=== PATIENT | female | born 1985 | race Hispanic/Latino ===

== ENCOUNTER 2022-08-06 11:06 | Emergency (ER) | payer SELFPAY ==
--- OUTSIDE RECORDS SUMMARY | 2022-08-06 11:09 | XMS REPORT | Continuity of Care Document ---
:[address] [facility] t Address [address] [place] [address] Care Team Providers Name Role Phone PCP, PATIENT DOES NOT HAVE A Primary Care Physician Unavaila ble JANETH DE LA GARZA Attending Clinician Unavailable Janeth De La Garza DO Attending Clinician Dionne Guerrero RN Attending Clinician Unavailable Jose Luis Morel Attending Clinician JOSE LUIS STEELE Attending Clinician Unavailable Doctor Unassigned, [place] Attending Clinician Unavailable Yahaira Bright MD Attending Clinician Wilfred Sainz Attending Clinician Kerline Cox Attending Clinician KERLINE MILLER Attending Clinician Unavailable JANETH DE LA GARZA Admitting Clinician Unavailable Payers Payer Name Policy Type Policy Number Effective Date Expiration Date S ource Problems Condition Condition Condition Status Onset Resolution Last Treating Co mments Source Name Details Category Date Date Treatment Clinician Date Chlamydia Chlamydia Disease Active 2017-12 Uni vers 0-26 ity of 00:00: [place] 00 [facility] Trichomona Trichomona Disease Active 2017-12 U nivers s s 0-26 ity of infection infection 00:00: [place] [facility] [place] Failure of Failure of Disease Active 2017-12 U [facility] outpatient outpatient 0-24 [place] PID (acute PID (acute Disease Active 2017-12 U nivers pelvic pelvic 0-23 ity of inflammato inflammato [place] Medical disease[place] disease) Branch Pyosalpinx Pyosalpinx Disease Active 2017-12 U nivers 0-23 ity of 00:00: [place] 00 Medical Branch Obesity Obesity Disease Active Univers (BMI (BMI 6-19 ity of 30-39.9) 30-39.9) 00:00: [place] 00 Medical Branch Tachycardi Tachycardi Disease Active U nivers a a 5-21 ity of 00:00: [place] 00 Medical Branch Allergies, Adverse Reactions, Alerts Allergy Allergy Status Severity Reaction(s) Onset Inactive Treating Comm ents Source Name Type Date Date Clinician HYDROCOD DRUG Active ITCHING Univers ONE-ACET 6-07 ity of AMINOPHE 00:00: [place] N 00 Medical Branch Hydrocod Propensi Active Itching Unive rs one-Acet ty to 6-07 ity of aminophe adverse 00:00: [place] n reaction 00 Medical s Branch Social History Social Habit Start Date Stop Date Quantity Comments Source History of Smokes tobacco University of tobacco use daily [facility] Exposure to 2022-06-15 2022-06-25 Not sure [facility] SARS-CoV-2 00:00:00 14:48:00 [facility] [place] [facility] (event) Branch Tobacco use and 2017-04-21 2017-04-21 Smokeless tobacco Un iversity of exposure 00:00:00 00:00:00 non-user [facility] Sex Assigned [birth year] [facility] 00:00:00 00:00:00 Smoking Status Start Date Stop Date Source Tobacco smoking consumption [facility] unknown Smokes tobacco daily 2017-04-21 00:00:00 Univers ity [facility] Medications Ordered Filled Start Stop Current Ordering Indication Dosage Frequency Signature Comments Components Source Medication Medication Date Date Medication? Clinician (SIG) Name Name methocarbam Yes [id number] 750mg Take 1 Univers oL 750 mg 7-25 tablet by ity o f tablet 00:00: mouth 4 [place] (four) Medical times [place] daily as needed (muscle spasm). methylPREDN Yes [id number] Take by Univers ISolone 7-25 105 mouth ity of (MEDROL, 00:00: SEE-INSTRU [place] as SIRIA,) 4 mg 00 CTIONS. Medica l tablets follow Branch package directions naproxen 0 Yes [id number] 550mg Take 1 Univers sodium 7-25 105 tablet by ity of (ANAPROX 00:00: mouth in [place] DS) 550 mg 00 the Medical tablet morning Branch and 1 tablet in the evening. Take with meals. ketorolac 2020- No 30mg 30 mg, Unive rs (TORADOL) 03-03 Intramuscu ity of injection 01:30: 00:24 lar, ONCE, [place] 30 mg 00 :00 1 dose, Medical Diana 03/02/21 Branch at 2030, ALEJANDRO
Fa culty member approving Restricted medication : Wilfred GLEZ cyclobenzap 0 Yes [id number] 10mg Take 1 Univers rine 10 mg 4-01 tablet by ity of tablet 00:00: mouth [place] (three) Medical times Branch daily. ibuprofen 0 Yes [id number] 600mg Take 1 Univers 600 mg 4-01 tablet by ity of tablet 00:00: mouth [place] [id number] every 6 Medical (six) Branch hours as needed for Pain (scale 4-6). cyclobenzap 2020-0 Yes [id number] 10mg Take 1 Univers rine 10 mg 4-01 tablet by ity of tablet 00:00: mouth [place] (three) Medical times Branch daily. ibuprofen 2020-0 Yes [id number] 600mg Take 1 Univers 600 mg 4-01 tablet by ity of tablet 00:00: mouth [place] [id number] every 6 Medical (six) Branch hours as needed for Pain (scale 4-6). cyclobenzap 2020-0 Yes [id number] 10mg Take 1 Univers rine 10 mg 4-01 tablet by ity of tablet 00:00: mouth 3 [place] (three) Medical times Branch daily. ibuprofen 2020-0 Yes [id number] 600mg Take 1 Univers 600 mg 4-01 tablet by ity of tablet 00:00: mouth [place] 00 every 6 Medical (six) Branch hours as needed for Pain (scale 4-6). cyclobenzap 2020-0 Yes [id number] 10mg Take 1 Univers rine 10 mg 4-01 tablet by ity of tablet 00:00: mouth 3 00 (three) Medical times Branch daily. ibuprofen 2021-0 Yes [id number] 600mg Take 1 Univers 600 mg 4-01 tablet by ity of tablet 00:00: mouth [place] 00 every 6 Medical (six) Branch hours as needed for Pain (scale 4-6). cyclobenzap 2021-0 Yes [id number] 10mg Take 1 Univers rine 10 mg 4-01 tablet by ity of tablet 00:00: mouth 3 00 (three) Medical times Branch daily. ibuprofen 2020-0 Yes [id number] 600mg Take 1 Univers 600 mg 4-01 tablet by ity of tablet 00:00: mouth [place] 00 every 6 Medical (six) Branch hours as needed for Pain (scale 4-6). cyclobenzap 2020-0 Yes [id number] 10mg Take 1 Univers rine 10 mg 4-01 tablet by ity of tablet 00:00: mouth 3 00 (three) Medical times Branch daily. ibuprofen 2020-0 Yes [id number] 600mg Take 1 Univers 600 mg 4-01 tablet by ity of tablet 00:00: mouth [place] 00 every 6 Medical (six) Branch hours as needed for Pain (scale 4-6). ketorolac 2019-0 2020- No 30mg 30 mg, Unive rs (TORADOL) 07-07 08-06 Slow IV ity of injection 17:30: 16:43 Push, [place] 30 mg 00 :00 ONCE, 1 Medical dose, [facility] Branch 07/07/20 at 1230, ALEJANDRO
Fa [facility] member approving Restricted medication : JOSE LUIS STEELE ketorolac 2020-0 Yes [id number] 10mg Take 1 U nivers 10 mg 8-06 tablet by ity of tablet 00:00: mouth [place] 00 every 6 Medical (six) Branch hours as needed for Pain (scale 7-10). methocarbam 2020-0 Yes [id number] 750mg Take 1 Univers ol 750 mg 8-06 tablet by ity o f tablet 00:00: mouth 4 00 (four) Medical times Branch daily as needed (muscle spasm). ketorolac 2020-0 Yes [id number] 10mg Take 1 U nivers 10 mg 8-06 tablet by ity of tablet 00:00: mouth [place] 00 every 6 Medical (six) Branch hours as needed for Pain (scale 7-10). methocarbam 2020-0 Yes [id number] 750mg Take 1 Univers ol 750 mg 8-06 tablet by ity o f tablet 00:00: mouth 4 00 (four) Medical times Branch daily as needed (muscle spasm). ketorolac 2020-0 Yes [id number] 10mg Take 1 U nivers 10 mg 8-06 tablet by ity of tablet 00:00: mouth [place] 00 every 6 Medical (six) Branch hours as needed for Pain (scale 7-10). methocarbam 2020-0 Yes [id number] 750mg Take 1 Univers ol 750 mg 8-06 tablet by ity o f tablet 00:00: mouth (four) Medical times Branch daily as needed (muscle spasm). ketorolac 2020-0 Yes [id number] 10mg Take 1 U nivers 10 mg 8-06 tablet by ity of tablet 00:00: mouth [place] 00 every 6 Medical (six) Branch hours as needed for Pain (scale 7-10). methocarbam 2020-0 Yes [id number] 750mg Take 1 Univers ol 750 mg 8-06 tablet by ity o f tablet 00:00: mouth (four) Medical times Branch daily as needed (muscle spasm). ketorolac 2020-0 Yes [id number] 10mg Take 1 U nivers 10 mg 8-06 tablet by ity of tablet 00:00: mouth [place] 00 every 6 Medical (six) Branch hours as needed for Pain (scale 7-10). methocarbam 2020-0 Yes [id number] 750mg Take 1 Univers ol 750 mg 8-06 tablet by ity o f tablet 00:00: mouth (four) Medical times Branch daily as needed (muscle spasm). ketorolac 2020-0 Yes [id number] 10mg Take 1 U nivers 10 mg 8-06 tablet by ity of tablet 00:00: mouth [place] 00 every 6 Medical (six) Branch hours as needed for Pain (scale 7-10). ketorolac 2020-0 Yes [id number] 10mg Take 1 U nivers 10 mg 8-06 tablet by ity of tablet 00:00: mouth [place] 00 every 6 Medical (six) Branch hours as needed for Pain (scale 7-10). methocarbam Yes [id number] 750mg Take 1 Univers ol 750 mg 8-06 tablet by ity o f tablet 00:00: mouth 4 [place] 00 (four) Medical times Branch daily as needed (muscle spasm). methocarbam No [id number] 750mg Take 1 Univers ol 750 mg 8-06 07-25 tablet by ity of tablet 00:00: 00:00 mouth 4 [place] 00 :00 (four) Medical times Branch daily as needed (muscle spasm). dexamethaso 2019- No 10mg 10 mg, Uni vers ne 06-19 Oral, ity of (DECADRON 03:00: 02:40 ONCE, 1 [place] PHOSPH[place] 00 :00 dose, Sat Medi morgan injection 06/18/20 at [facility] 10 mg 2200, Routine ketorolac 2019- No 30mg 30 mg, Unive rs (TORADOL) 06-19 Intramuscu ity of injection 03:00: 03:00 lar, ONCE, [place] 30 mg 00 :00 1 dose, Medical Sat Branch 06/18/20 at 2200, ALEJANDRO
Fa culty member approving Restricted medication : KERLINE MILLER maalox:diph 2019- No 15mL 15 mL, Uni vers enhydrAMINE 06-19 Oral, ity of :lidocaine 02:00: 02:40 ONCE, 1 [place] as 2 % viscous 00 :00 dose, Sat Med ical 1:1:1 06/18/20 [place] ([facility]-MOUT 2100, ALEJANDRO [facility]) oral suspension 15 mL acetaminoph 2019- No 1000mg 1,000 mg, Univers en 06-19 Oral, ity of (TYLENOL) 01:30: 00:40 ONCE, [place] tablet 00 :00 dose, Sat Medical 1,000 mg 06/18/20 at [facility] h 2030, Routine gabapentin Yes [id number] 300mg Take 1 Univers 300 mg 7-07 capsule by ity of capsule 00:00: mouth 3 [place] 00 (three) Medical times Branch daily as needed for Pain (scale 7-10). gabapentin Yes [id number] 300mg Take 1 Univers 300 mg 7-07 capsule by ity of capsule 00:00: mouth 3 [place] (three) Medical times Branch daily as needed for Pain (scale 7-10). gabapentin 2019-0 Yes [id number] 300mg Take 1 Univers 300 mg 7-07 capsule by ity of capsule 00:00: mouth 3 (three) Medical times Branch daily as needed for Pain (scale 7-10). gabapentin 2019-0 Yes [id number] 300mg Take 1 Univers 300 mg 7-07 capsule by ity of capsule 00:00: mouth 3 (three) Medical times Branch daily as needed for Pain (scale 7-10). gabapentin 2019-0 Yes [id number] 300mg Take 1 Univers 300 mg 7-07 capsule by ity of capsule 00:00: mouth 3 (three) Medical times Branch daily as needed for Pain (scale 7-10). gabapentin 2019-0 Yes [id number] 300mg Take 1 Univers 300 mg 7-07 capsule by ity of capsule 00:00: mouth 3 (three) Medical times Branch daily as needed for Pain (scale 7-10). gabapentin 2019-0 Yes [id number] 300mg Take 1 Univers 300 mg 7-07 capsule by ity of capsule 00:00: mouth (three) Medical times Branch daily as needed for Pain (scale 7-10). gabapentin 2019-0 Yes [id number] 300mg Take 1 Univers 300 mg 7-07 capsule by ity of capsule 00:00: mouth 3 (three) Medical times Branch daily as needed for Pain (scale 7-10). gabapentin 2019-0 Yes [id number] 300mg Take 1 Univers 300 mg 7-07 capsule by ity of capsule 00:00: mouth (three) Medical times Branch daily as needed for Pain (scale 7-10). gabapentin 2019-0 Yes [id number] 300mg Take 1 Univers 300 mg 7-07 capsule by ity of capsule 00:00: mouth 3 (three) Medical times Branch daily as needed for Pain (scale 7-10). cyclobenzap 2019-0 Yes [id number] 10mg Take 1 Univers rine 10 mg 7-04 tablet by ity of tablet 00:00: mouth 3 (three) Medical times Branch daily as needed for Muscle Spasms. acetaminoph 2019-0 Yes [id number] 1{tbl} Take 1 Univers en-codeine 7-04 tablet by ity of (TYLENOL-CO 00:00: mouth [place] DEINE #3) 00 every 4 Medical 300-30 mg (four) Branch tablet hours as needed for Pain (scale 1-3). cyclobenzap 2019 Yes [id number] 10mg Take 1 Univers rine 10 mg 7-04 tablet by ity of tablet 00:00: mouth 3 [place] 00 (three) Medical times Branch daily as needed for Muscle Spasms. acetaminoph Yes [id number] 1{tbl} Take 1 Univers en-codeine 7-04 tablet by ity of (TYLENOL-CO 00:00: mouth [place] DEINE #3) 00 every 4 Medical 300-30 mg (four) Branch tablet hours as needed for Pain (scale 1-3). cyclobenzap Yes [id number] 10mg Take 1 Univers rine 10 mg 7-04 tablet by ity of tablet 00:00: mouth 3 [place] 00 (three) Medical times Branch daily as needed for Muscle Spasms. acetaminoph Yes [id number] 1{tbl} Take 1 Univers en-codeine 7-04 tablet by ity of (TYLENOL-CO 00:00: mouth [place] DEINE #3) 00 every 4 Medical 300-30 mg (four) Branch tablet hours as needed for Pain (scale 1-3). cyclobenzap Yes [id number] 10mg Take 1 Univers rine 10 mg 7-04 tablet by ity of tablet 00:00: mouth 3 [place] 00 (three) Medical times Branch daily as needed for Muscle Spasms. acetaminoph Yes [id number] 1{tbl} Take 1 Univers en-codeine 7-04 tablet by ity of (TYLENOL-CO 00:00: mouth [place] DEINE #3) 00 every 4 Medical 300-30 mg (four) Branch tablet hours as needed for Pain (scale 1-3). cyclobenzap 2019 Yes [id number] 10mg Take 1 Univers rine 10 mg 7-04 tablet by ity of tablet 00:00: mouth 3 [place] 00 (three) Medical times Branch daily as needed for Muscle Spasms. acetaminoph 0 Yes [id number] 1{tbl} Take 1 Univers en-codeine 7-04 tablet by ity of (TYLENOL-CO 00:00: mouth [place] DEINE #3) 00 every 4 Medical 300-30 mg (four) Branch tablet hours as needed for Pain (scale 1-3). cyclobenzap Yes [id number] 10mg Take 1 Univers rine 10 mg 7-04 tablet by ity of tablet 00:00: mouth 3 [place] 00 (three) Medical times Branch daily as needed for Muscle Spasms. acetaminoph Yes [id number] 1{tbl} Take 1 Univers en-codeine 7-04 tablet by ity of (TYLENOL-CO 00:00: mouth [place] DEINE #3) 00 every 4 Medical 300-30 mg (four) Branch tablet hours as needed for Pain (scale 1-3). cyclobenzap Yes [id number] 10mg Take 1 Univers rine 10 mg 7-04 tablet by ity of tablet 00:00: mouth 3 [place] 00 (three) Medical times Branch daily as needed for Muscle Spasms. acetaminoph Yes [id number] 1{tbl} Take 1 Univers en-codeine 7-04 tablet by ity of (TYLENOL-CO 00:00: mouth [place] DEINE #3) 00 every 4 Medical 300-30 mg (four) Branch tablet hours as needed for Pain (scale 1-3). cyclobenzap Yes [id number] 10mg Take 1 Univers rine 10 mg 7-04 tablet by ity of tablet 00:00: mouth 3 [place] 00 (three) Medical times Branch daily as needed for Muscle Spasms. acetaminoph Yes [id number] 1{tbl} Take 1 Univers en-codeine 7-04 tablet by ity of (TYLENOL-CO 00:00: mouth [place] DEINE #3) 00 every 4 Medical 300-30 mg (four) Branch tablet hours as needed for Pain (scale 1-3). cyclobenzap Yes [id number] 10mg Take 1 Univers rine 10 mg 7-04 tablet by ity of tablet 00:00: mouth 3 [place] 00 (three) Medical times Branch daily as needed for Muscle Spasms. acetaminoph Yes [id number] 1{tbl} Take 1 Univers en-codeine 7-04 tablet by ity of (TYLENOL-CO 00:00: mouth [place] DEINE #3) 00 every 4 Medical 300-30 mg (four) Branch tablet hours as needed for Pain (scale 1-3). cyclobenzap 0 Yes [id number] 10mg Take 1 Univers rine 10 mg 7-04 tablet by ity of tablet 00:00: mouth 3 [place] 00 (three) Medical times Branch daily as needed for Muscle Spasms. acetaminoph 0 Yes [id number] 1{tbl} Take 1 Univers en-codeine 7-04 tablet by ity of (TYLENOL-CO 00:00: mouth [place] DEINE #3) 00 every 4 Medical 300-30 mg (four) Branch tablet hours as needed for Pain (scale 1-3). naproxen 2017-12 Yes 550mg Take 1 Univer s sodium 2-12 tablet by ity of (ANAPROX 00:00: mouth 2 [place] DS) 550 mg 00 (two) Medical tablet times Branch daily with meals. methylPREDN 2017-12 Yes Take by Uni vers ISolone 2-12 mouth ity of (MEDROL, 00:00: SEE-INSTRU [place] as SIRIA,) 4 mg 00 CTIONS. Medica l tablets follow Branch package directions naproxen 2017-12 Yes 550mg Take 1 Univer s sodium 2-12 tablet by ity of (ANAPROX 00:00: mouth 2 [place] DS) 550 mg 00 (two) Medical tablet times Branch daily with meals. methylPREDN 2017-12 Yes Take by Uni vers ISolone 2-12 mouth ity of (MEDROL, 00:00: SEE-INSTRU [place] as SIRIA,) 4 mg 00 CTIONS. Medica l tablets follow Branch package directions naproxen 2017-12 Yes 550mg Take 1 Univer s sodium 2-12 tablet by ity of (ANAPROX 00:00: mouth 2 [place] DS) 550 mg 00 (two) Medical tablet times Branch daily with meals. methylPREDN 2017-12 Yes Take by Uni vers ISolone 2-12 mouth ity of (MEDROL, 00:00: SEE-INSTRU [place] as SIRIA,) 4 mg 00 CTIONS. Medica l tablets follow Branch package directions naproxen 2017-12 Yes 550mg Take 1 Univer s sodium 2-12 tablet by ity of (ANAPROX 00:00: mouth 2 [place] DS) 550 mg 00 (two) Medical tablet times Branch daily with meals. methylPREDN 2017-12 Yes Take by Uni vers ISolone 2-12 mouth ity of (MEDROL, 00:00: SEE-INSTRU [place] as SIRIA,) 4 mg 00 CTIONS. Medica l tablets follow Branch package directions naproxen 2017-12 Yes 550mg Take 1 Univer s sodium 2-12 tablet by ity of (ANAPROX 00:00: mouth 2 [place] DS) 550 mg 00 (two) Medical tablet times Branch daily with meals. methylPREDN 2017-12 Yes Take by Uni vers ISolone 2-12 mouth ity of (MEDROL, 00:00: SEE-INSTRU [place] as SIRIA,) 4 mg 00 CTIONS. Medica l tablets follow Branch package directions naproxen 2017-12 Yes 550mg Take 1 Univer s sodium 2-12 tablet by ity of (ANAPROX 00:00: mouth 2 [place] DS) 550 mg 00 (two) Medical tablet times Branch daily with meals. methylPREDN 2017-12 Yes Take by Uni vers ISolone 2-12 mouth ity of (MEDROL, 00:00: SEE-INSTRU [place] as SIRIA,) 4 mg 00 CTIONS. Medica l tablets follow Branch package directions naproxen 2017-12 Yes 550mg Take 1 Univer s sodium 2-12 tablet by ity of (ANAPROX 00:00: mouth 2 [place] DS) 550 mg 00 (two) Medical tablet times Branch daily with meals. methylPREDN 2017-12 Yes Take by Uni vers ISolone 2-12 mouth ity of (MEDROL, 00:00: SEE-INSTRU [place] as SIRIA,) 4 mg 00 CTIONS. Medica l tablets follow Branch package directions naproxen 2017-12 Yes 550mg Take 1 Univer s sodium 2-12 tablet by ity of (ANAPROX 00:00: mouth 2 [place] DS) 550 mg 00 (two) Medical tablet times Branch daily with meals. methylPREDN 2017-12 Yes Take by Uni vers ISolone 2-12 mouth ity of (MEDROL, 00:00: SEE-INSTRU [place] as SIRIA,) 4 mg 00 CTIONS. Medica l tablets follow Branch package directions naproxen 2017-12 Yes 550mg Take 1 Univer s sodium 2-12 tablet by ity of (ANAPROX 00:00: mouth 2 [place] DS) 550 mg 00 (two) Medical tablet times Branch daily with meals. methylPREDN 2017-12 Yes Take by Uni vers ISolone 2- mouth ity of (MEDROL, 00:00: SEE-INSTRU [place] as SIRIA,) 4 mg 00 CTIONS. Medica l tablets follow Branch package directions naproxen 2017-12- No 550mg Take 1 Unive rs sodium 01-13 tablet by ity of (ANAPROX 00:00: 00:00 mouth 2 [place] DS) 550 mg 00 :00 (two) Medical tablet times Branch daily with meals. methylPREDN 2017-12 No Take by Un cathy ISolone 01-13- mouth ity of (MEDROL, 00:00: 00:00 [place]INSTRU [place] SIRIA,) 4 mg 00 :00 CTIONS. Medica l tablets follow Branch package directions Immunizations Ordered Filled Immunization Date Status Comments [facility] e Immunization Name Name Influenza Virus 2018-09-23 Completed Universit y of Vaccine [place] .5 mL 00:00:00 [place] [facility] 6+ MO Branch Influenza Virus 2018-09-23 Completed Universit y of Vaccine [place] .5 mL 00:00:00 [place] [facility] IM 6+ MO Branch Influenza Virus 2018-09-23 Completed Universit y of Vaccine [place] .5 mL 00:00:00 [facility] [place] [facility] 6+ MO Branch Influenza Virus 2018-09-23 Completed Universit y of Vaccine [place] .5 mL 00:00:00 [facility] [place] [facility] 6+ MO Branch Influenza Virus 2018-09-23 Completed Universit y of Vaccine [place] .5 mL 00:00:00 [place] [facility] IM 6+ MO Branch Influenza Virus 2018-09-23 Completed Universit y of Vaccine [place] .5 mL 00:00:00 [place] [facility] IM 6+ MO Branch Influenza Virus 2018-09-23 Completed Universit y of Vaccine [place] .5 mL 00:00:00 [place] [facility] IM 6+ MO Branch Influenza Virus 2018-09-23 Completed Universit y of Vaccine [place] .5 mL 00:00:00 [place] [facility] IM 6+ MO Branch Influenza Virus 2018-09-23 Completed Universit y of Vaccine [place] .5 mL 00:00:00 [place] [facility] IM 6+ MO Branch Influenza Virus 2018-09-23 Completed Universit y of Vaccine [place] .5 mL 00:00:00 [facility] [place] [facility] 6+ MO Branch Vital Signs Vital Name Observation Time Observation Value Comments Source Systolic blood 2022-06-25 21:16:58 122 mm[Hg] Univer sity of pressure [place] [facility] Diastolic blood 2022-06-25 21:16:58 66 mm[Hg] Unive rsity of pressure [place] [facility] Heart rate 2022-06-25 21:16:58 90 /min Universi ty of [place] [facility] Body temperature 2022-06-25 21:16:58 37.22 Rin Univ ersity of [place] [facility] Respiratory rate 2022-06-25 21:16:58 15 /min Univ ersity of [place] [facility] Body height 2022-06-25 19:49:00 154.9 cm Universi ty of [place] [facility] Body weight 2022-06-25 19:49:00 68.04 kg Universi ty [facility] [place] [facility] BMI 2022-06-25 19:49:00 28.34 kg/m2 Universi ty of [place] [facility] Oxygen saturation in 2022-06-25 19:49:00 100 /min University of Arterial blood by [place] [facility] morgan Pulse oximetry Branch Systolic blood 2021-07-24 15:12:00 110 mm[Hg] Univer sity of pressure [place] [facility] Diastolic blood 2021-07-24 15:12:00 77 mm[Hg] Unive rsity of pressure [place] [facility] Heart rate 2021-07-24 15:12:00 80 /min Universi ty of [place] [facility] Body temperature 2021-07-24 15:12:00 37.11 Rin Univ ersity of [place] [facility] Respiratory rate 2021-07-24 15:12:00 18 /min Univ ersity of [place] [facility] Body height 2021-07-24 15:12:00 154.9 cm Universi ty of [place] [facility] Body weight 2021-07-24 15:12:00 72.576 kg Universi ty of [place] [facility] BMI 2021-07-24 15:12:00 30.23 kg/m2 Universi ty of [place] [facility] Oxygen saturation in 2021-07-24 15:12:00 100 /min University of Arterial blood by [place] [facility] morgan Pulse oximetry Branch Systolic blood 2021-03-02 23:15:00 131 mm[Hg] Univer sity of pressure [place] [facility] Diastolic blood 2021-03-02 23:15:00 89 mm[Hg] Unive rsity of pressure [place] [facility] Heart rate 2021-03-02 23:15:00 98 /min Universi ty of [place] [facility] Body temperature 2021-03-02 23:15:00 36.89 Rin Univ ersity of [place] [facility] Respiratory rate 2021-03-02 23:15:00 18 /min Univ ersity of [place] [facility] Body weight 2021-03-02 23:15:00 72.576 kg Universi ty of [place] [facility] BMI 2021-03-02 23:15:00 30.23 kg/m2 Universi ty of [place] [facility] Oxygen saturation in 2021-03-02 23:15:00 97 /min University of Arterial blood by [facility] Pulse oximetry Branch Systolic blood 2020-07-07 18:00:00 115 mm[Hg] Univer sity of pressure [place] [facility] Diastolic blood 2020-07-07 18:00:00 84 mm[Hg] Unive rsity of pressure [place] [facility] Heart rate 2020-07-07 18:00:00 77 /min Universi ty of [place] [facility] Respiratory rate 2020-07-07 18:00:00 18 /min Univ ersity of [place] [facility] Oxygen saturation in 2020-07-07 18:00:00 99 /min University of Arterial blood by [facility] Pulse oximetry Branch Body temperature 2020-07-07 16:00:00 36.78 Rin Univ ersity of [place] [facility] Body weight 2020-07-07 16:00:00 72.576 kg Universi ty of [place] [facility] BMI 2020-07-07 16:00:00 30.23 kg/m2 Universi ty [facility] [place] [facility] Systolic blood 2020-06-19 02:50:00 131 mm[Hg] Univer sity of pressure [place] [facility] Diastolic blood 2020-06-19 02:50:00 96 mm[Hg] Unive rsity of pressure [place] [facility] Heart rate 2020-06-19 02:50:00 82 /min Universi ty [facility] [place] [facility] Body temperature 2020-06-19 02:50:00 37.06 Rin Univ ersity [facility] [place] [facility] Respiratory rate 2020-06-19 02:50:00 19 /min Univ ersity of [place] [facility] Oxygen saturation in 2020-06-19 02:50:00 99 /min University of Arterial blood by [facility] Pulse oximetry Branch Body height 2020-06-18 23:38:00 [facility]9 [facility] Body [facility] 2020-06-18 23:38:00 [facility].844 [facility] BMI 2020-06-18 23:38:00 31.18 kg/m2 [facility] Procedures Procedure Date / Time Performed Performing Clinician Sourc e XR ANKLE <3 VW LEFT 2022-06-25 20:22:00 Janeth De [facility] Gar[facility] CONSENT/REFUSAL FOR 2022-06-25 19:24:21 Doctor Unassigned, No [facility] [place] [facility] TREATMENT NOTICE OF PRIVACY 2021-07-24 15:05:13 Doctor Unassigned, No Univ [facility] CONSENT/REFUSAL FOR 2021-07-24 15:04:56 Doctor Unassigned, No [facility] [place] [facility] AND Name Medical Branch TREATMENT CONSENT/REFUSAL FOR 2021-03-02 23:08:33 Doctor Unassigned, No [facility] [place] DI[facility] AND Name Medical Branch TREATMENT URINALYSIS 2020-07-07 16:42:00 Cedric [facility] POCT TEST 2020-07-07 16:42:00 Jose Luis Steele [facility] BASIC METABOLIC PANEL 2020-07-07 16:26:00 Jose Luis Steele [facility] (NA, K, CL, CO2, Medical Branch GLUCOSE, BUN, CREATININE, CA) CBC WITH DIFF 2020-07-07 16:26:00 Jose Luis Steele [facility] NOTICE OF PRIVACY 2020-07-07 15:55:50 Doctor Unassigned, No Univ [facility] CONSENT/REFUSAL FOR 2020-07-07 15:55:33 Doctor Unassigned, No [facility] [place] [facility] AND Name Medical Branch TREATMENT XR CHEST 1 VW COVID 2020-06-19 01:49:09 Kerline Miller [facility] POCT TEST 2020-06-19 01:36:00 Kerline Miller [facility] RAPID STREP SCREEN FOR 2020-06-19 00:37:00 [facility] NOTICE OF PRIVACY 2020-06-18 23:31:56 [facility] CONSENT/REFUSAL FOR 2020-06-18 23:31:43 Doctor [facility], No [facility] Name Medical Branch TREATMENT Encounters Start End Encounter Admission Attending Care Care Encounter Source Date/Time Date/Time Type Type Clinicians Facility Department ID 2022-06-25 2022-06-25 Emergency X SINGER [facility] ERT [id number] Univers 14:50:00 16:19:00 JANETH giraldo [facility] 2022-06-25 2022-06-25 Emergency [facility] [id number] Univers 14:50:00 16:19:00 Janeth OCNONOR [id number] i ty of [place] 4.2.7.2.686 [facility] [id number] [address] 2021-07-25 2021-07-25 Letter Dionne Guerrero [id number] Univers 00:00:00 00:00:00 (Out) NEHAL [id number] it y of HOSPITAL [id number] Reuben as [phone] [place] [address] Branch 2021-07-24 2021-07-24 [facility] [id number] Univers 10:14:00 10:49:00 Jose Luis Oconnor [id number] i ty of [place] 4.2.7.2.686 [facility] [phone] [place] [address] Branch 2021-07-24 2021-07-24 Emergency X CEDRIC, [facility] ERT [id number] Univers 10:14:00 10:49:00 JOSE LUIS giraldo [facility] 2021-07-24 2021-07-24 Orders Doctor GUTIERREZ 1.2.840.114 [id number] Univers 00:00:00 00:00:00 Only Unassigned, NEHAL [id number] ity of [place] [facility] 4.2.7.2.686 Reuben as [id number] [facility] [address] 2021-07-24 2021-07-24 Estefania Bright [facility] [id number] Univers 00:00:00 00:00:00 [facility] [id number] it y of Surgical 4.2.7.2.686 Reuben as Specialti [id number] Wy dical es [address] [facility] 2021-03-02 2021-03-02 Emergency Robin, K [facility] 1.2.840.114 [id number] Univers 18:18:00 19:42:00 Trudy Bayside 350.1.13.10 i ty of [place] 4.2.7.2.686 [facility] [id number] [address] 2021-03-02 2021-03-02 Emergency X [facility] ERT [id number] Univers 18:08:00 18:08:00 ity of [facility] 2020-07-07 2020-07-07 [facility] 1.2.840.114 [id number] Univers 11:04:00 13:54:00 Jose Luis [place] 350.1.13.10 i ty of [place] 4.2.7.2.686 [facility] [id number] [address] 2020-07-07 2020-07-07 Emergency X [facility] ERT [id number] Univers 10:56:00 10:56:00 ity of [facility] 2020-07-07 2020-07-07 Orders Doctor GUTIERREZ 1.2.840.114 [id number] Univers 00:00:00 00:00:00 Only Unassigned, NEHAL [id number] ity of [place] [facility] 4.2.7.2.686 Reuben as [id number] [address] 2020-06-18 2020-06-18 [facility] 1.2.840.114 [id number] Univers 18:56:19 22:26:00 Kerline Oconnor 350.1.13.10 ity of [place] 4.2.7.2.686 [facility] [id number] [address] 2020-06-18 2020-06-18 Emergency X KING [facility] ERT [id number] Univers 18:56:19 18:56:19 KERLINE ity of [facility] 2020-06-18 2020-06-18 Orders Doctor BRENDA 1.2.840.114 [id number] Univers 00:00:00 00:00:00 Only Unassigned, NEHAL 350.1.13.10 ity of [place] [facility] 4.2.7.2.686 Reuben as [phone] [address] Results Test Description Test Time Test Comments Results Result Comments Source Urinalysis 2020-07-07 16:56:00 Test Item Value Reference Range Interpretation Comme nts APPEARANCE (test code = Clear Clear 0173984882) COLOR (test code = 1424057888) Yellow Yellow PH (test code = 0807232785) 4.8-8.0 SP GRAVITY (test code = 1.003-1.030 8548101272) GLU U QUAL (test code = Normal Normal 6557948867) BLOOD (test code = 5258931830) 1+ Negative A KETONES (test code = 4157724162) Negative Negative PROTEIN (test code = 2887-8) Negative Negative UROBILIN (test code = Normal Normal 1696304635) BILIRUBIN (test code = Negative Negative 0161655586) NITRITE (test code = 8288205617) Negative Negative LEUK NOVA (test code = Negative Negative 3924456208) RBC/HPF (test code = 4193276273) See_Comment [Automated message] The system which ge nerated this result transmit nico reference range: 0 - 3 HP F. The reference range was not used to interpret th is result as normal/abnormal . WBC/HPF (test code = 5891893205) See_Comment [Automated message] The system which ge nerated this result transmit nico reference range: 0 - 5 HP F. The reference range was not used to interpret th is result as normal/abnormal . BACTERIA (test code = Negative Negative 0866529103) MUCOUS (test code = 5906258689) Moderate Negative LPF A SQ EPITH (test code = HPF 5797006209) Lab Interpretation (test code = Abnormal 09628-6) [facility] (NA, K, CL, CO2, GLUCOSE, BUN, CREATININE, CA)2020-07-07 16:46:00 Test Item Value Reference Range Interpretation Comments NA (test code = 135 mmol/L 135-145 3950813370) K (test code = 4.0 mmol/L 3.5-5 7491950438) CL (test code = 104 mmol/L 98-108 2260079823) CO2 TOTAL (test code = 24 mmol/L 23-31 3627592480) AGAP (test code = 2-16 2743965321) BUN (test code = 9 mg/dL 7-23 6260327564) GLUCOSE (test code = 107 mg/dL 70-110 2643081136) CREATININE (test code 0.53 mg/dL 0.5-1.04 = 1802013105) CALCIUM (test code = 9.0 mg/dL 8.6-10.6 1596197235) eGFR Calculation mL/min/1.73m2 (Non-) (test code = 7232598739) eGFR Calculation mL/min/1.73m2 () (test code = 0189917478) ROSELINE (test code = ROSELINE) Association of Glomerular Filtration Rate (GFR) and Staging of Kidney Disease* + -+ + ---+| GFR (mL/min/1.73 m2) ?| With Kidney Damage ?| ?Without Kidney Damage+ -------+ ------+ ---------+| ?>90 ?| ?Stage one ?| ? Normal ?+ --+ -+ ----+| ?60-89 ?| ?Stage two ?| ? Decreased GFR ? + -+ + ---+| ?30-59 ?| ?Stage three ?| ? Stage three ? + -+ + ---+| ?15-29 ?| ?Stage four ? | ? Stage four ?+ --+ -+ ----+| ?<15 (or dialysis) ? ?| ?Stage five ? | ? Stage five ?+ --+ -+ ----+ *Each stage assumes the associated GFR level has been in effect for at least three months. ?Stages 1 to 5, with or without kidney disease, indicate chronic kidney disease. Notes: Determination of stages one and two (with eGFR >59mL/min/1.73 m2) requires estimation of kidney damage for at least three months as defined by structural or functional abnormalities of the kidney, manifested by either:Pathological abnormalities or Markers of kidney damage (including abnormalities in the composition of the blood or urine or abnormalities in imaging tests). [facility] [id number] 16:42:00 Test Item Value Reference Range Interpretation Comments POCT PREG (test code = 1605) negative On board controls acceptable with present C Line (test code = 3574) POCT PREG LOT # (test code = 3575) [id number] POCT PREG TEST DATE (test code = 3576) Lab Interpretation (test code = Normal 39515-9) [facility] with [id number] 16:37:00 Test Item Value Reference Range Interpretation Comments WBC (test code = See_Comment [Automated 6590-2) message] The sy stem which generated this result transmitted reference range : 4.30 - 11.10 10*3/?L. The reference range was not used to interpret this result as normal/abnormal . RBC (test code = See_Comment [Automated 369-8) message] The sy stem which generated this result transmitted reference range : 3.93 - 5.25 10*6/?L. The reference range was not used to interpret this result as normal/abnormal . HGB (test code = 13.2 g/dL 11.6-15 718-7) HCT (test code = 39.9 % 35.7-45.2 4544-3) MCV (test code = 85.6 fL 80.6-95.5 787-2) MCH (test code = 28.3 pg 25.9-32.8 785-6) MCHC (test code = 33.1 g/dL 31.6-35.1 786-4) RDW-SD (test code = 39.0 fL 39-49.9 51493-8) RDW-CV (test code = 12.6 % 12-15.5 788-0) PLT (test code = See_Comment [Automated 917-3) message] The sy stem which generated this result transmitted reference range : 166 - 358 10*3/ ?L. The reference r gabo was not used to interpret this result as normal/abnormal . MPV (test code = 11.9 fL 9.5-12.9 61585-6) NRBC/100 WBC (test See_Comment [Automat ed code = 7795055975) message] The system which generated this result transmitted reference range : 0.0 - 10.0 /100 WBCs. The refer ence range was not u sed to interpret th is result as normal/abnormal . NRBC x10^3 (test code <0.01 See_Comment [Auto mated = 7770754951) message] The s ystem which generated this result transmitted reference range : 10*3/?L. The reference range was not used to interpret this result as normal/abnormal . GRAN MAT (NEUT) % 68.7 % (test code = 770-8) IMM GRAN % (test code 0.60 % = 0025364764) LYMPH % (test code = 19.2 % 736-9) MONO % (test code = 9.9 % 5905-5) EOS % (test code = 1.0 % 713-8) BASO % (test code = 0.6 % 706-2) GRAN MAT x10^3(ANC) 7.39 10*3/uL 1.88-7.09 H (test code = 8458389933) IMM GRAN x10^3 (test 0.06 10*3/uL 0-0.06 code = 4783755864) LYMPH x10^3 (test code 2.07 10*3/uL 1.32-3.29 = 731-0) MONO x10^3 (test code 1.07 10*3/uL 0.33-0.92 H = 742-7) EOS x10^3 (test code = 0.11 10*3/uL 0.03-0.39 711-2) BASO x10^3 (test code 0.06 10*3/uL 0.01-0.07 = 704-7) Lab Interpretation Abnormal (test code = 52392-5) [facility] 1 VW [id number] 01:54:55 1. No acute intrathoracic abnormality, specifically no detectableradiographic findings to suggest COVID-19 pneumonia. Disclaimer: Generally, the findings on chest imaging in COVID-19 are notspecific, and overlap with other infections, including influenza, H1N1,SARS and MERS.According to the Centers for Disease Control (CDC) and the [employer], viral testing remains the only specific method of diagnosiseven if CXR or CT findings are suggestive of COVID-19. PROCEDURE: CHEST XRAY 1 view, CLINICAL INDICATION: cough COMPARISON: None FINDINGS: Lungs: Lungs are clear. No focal consolidation is identified. Pleura: No pleural effusion or pneumothorax is seen. The heart is normal insize. No acute bony abnormality. [facility], Radiant Results Inft User - 06/18/2020 8:56 PM CDTPROCEDURE: CHEST XRAY 1 view, CLINICAL INDICATION: cough COMPARISON: NoneFINDINGS:Lungs: Lungs are clear. No focal consolidation is identified.Pleura: No pleural effusion or pneumothorax is seen. The heart is normal insize.No acute bony abnormality.IMPRESSION1. No acute intrathoracic abnormality, specifically no detectableradiographic findings to suggest COVID-19 pneumonia.Disclaimer: Generally, the findings on chest imaging in COVID-19 are notspecific, and overlap with other infections, including influenza, H1N1,SARS and MERS.According to the Centers for Disease Control (CDC) and the [employer], viral testing remains the only specific method of diagnosiseven if CXR or CT findings are suggestive ofCOVID-19.[facility] [id number] 01:36:00 Test Item Value Reference Range Interpretation Comments POCT PREG (test code = 1605) negative On board controls acceptable with positive C Line (test code = 3574) POCT PREG LOT # (test code = 3575) [id number] POCT PREG TEST DATE (test 07-01-2021 code = 3576) Lab Interpretation (test code = Normal 09109-9) [facility] FOR GROUP [id number] 00:56:00 Test Item Value Reference Range Interpretation Comments Streptococcus pyogenes (group A) Negative Negative antigen (test code = 79990-8) Lab Interpretation (test code = Normal 28060-6) [facility]"
[2022-08-06] MEDS ORDERED: ONDANSETRON 4 MG/2 ML VIAL ONE (12:14)
[2022-08-06] MEDS ORDERED: NA CHLORIDE 0.9% 1,000 ML ONE (12:14)
--- NOTE | 2022-08-06 13:19 | ER ---
Nurse's Notes [facility] Name: Cinthia Huitron Age: 37 yrs Sex: Female : 1985 Arrival Date: 08/06/2022 Time: 11:08 Bed 9 Private MD: Diagnosis: Acute upper respiratory infection, unspecified Presentation: 08/06 11:15 Chief complaint: Patient states: My body has been aching, my throat has been sore, I kl have been coughing, and my right ear hurts. Coronavirus screen: Client presents with at least one sign or symptom that may indicate coronavirus-19. Standard/surgical mask placed on the client. Ebola Screen: No symptoms or risks identified at this time. Initial Sepsis Screen: Does the patient meet any 2 criteria? No. Patient's initial sepsis screen is negative. Does the patient have a suspected source of infection? No. Patient's initial sepsis screen is negative. Risk Assessment: Do you want to hurt yourself or someone else? Patient reports no desire to harm self or others. Onset of symptoms is unknown. 11:15 Method Of Arrival: Ambulatory 11:15 Acuity: JOSIE 4 kl Triage Assessment: 11:16 General: Appears in no apparent distress. uncomfortable, Behavior is calm, cooperative, kl appropriate for age. Pain: Complains of pain in right ear Pain does not radiate. EENT: Nares are clear Reports difficulty swallowing nasal congestion nasal discharge. Neuro: No deficits noted. Cardiovascular: No deficits noted. Respiratory: No deficits noted. Airway is patent Respiratory effort is even, unlabored, Respiratory pattern is regular, symmetrical, Breath sounds are clear bilaterally. GI: No deficits noted. No signs and/or symptoms were reported involving the gastrointestinal system. : No deficits noted. No signs and/or symptoms were reported regarding the genitourinary system. Derm: No deficits noted. No signs and/or symptoms reported regarding the dermatologic system. Musculoskeletal: No deficits noted. No signs and/or symptoms reported regarding the musculoskeletal system. 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 - Social history:: Smoking status: Patient denies any tobacco usage or history of. Screenin:34 Abuse screen: Denies threats or abuse. Nutritional screening: No deficits noted. bm7 Tuberculosis screening: No symptoms or risk factors identified. Fall Risk None identified. Assessment: 13:34 Reassessment: No changes from previously documented assessment. Patient is alert, bm7 oriented x 3, equal unlabored respirations, skin warm/dry/pink. Vital Signs: 11:15 BP 111 / 82; Pulse 80; Resp 16; Temp 97.4(TE); Pulse Ox 100% on R/A; Weight 72.57 kg (R); Height 5 ft. 1 in. (154.94 cm); Pain 8/10; 11:15 Body Mass Index 30.23 (72.57 kg, 154.94 cm) ED Course: 11:08 Patient arrived in ED. 4 11:08 Katie Rico FNP is PHCP. [facility] 11:08 Jose Gordon MD is Attending Physician. [facility] 11:10 PHCP role handed off by Katie Rico FNP 9 11:10 Arnoldo Huff is PHCP. [facility] 11:14 PHCP role handed off by Arnoldo Huff [facility] 11:14 Katie Rico FNP is PHCP. 7 11:16 Triage completed. 11:16 Arm band placed on left wrist. 12:16 Gisel Johnson, RN is Primary Nurse. kb3 13:34 Patient has correct armband on for positive identification. bm7 13:34 No provider procedures requiring assistance completed. Patient did not have IV access bm7 during this emergency room visit. Administered Medications: No medications were administered Medication: 13:34 VIS not applicable for this client. bm7 Outcome: 13:19 Discharge ordered by . 7 13:34 Discharged to home ambulatory. bm7 13:34 Condition: good 13:34 Discharge instructions given to patient, Instructed on discharge instructions, Demonstrated understanding of instructions, Prescriptions given X 1. 13:35 Patient left the ED. 7 Signatures: Carol Forte RN Rosa Patel 4 Camila Garcia, RN RN 7 Katie Rico FNP BRICK LOADER jh7 Arnoldo Huff jl9 Gisel Johnson, RN RN kb3 Corrections: (The following items were deleted from the chart) 11:17 11:16 Allergies: No Known Allergies; kl kl
--- NOTE | 2022-08-06 13:19 | EDPHYS ---
Physician Documentation [facility] Name: Cinthia Huitron Age: 37 yrs Sex: Female : 1985 Arrival Date: 08/06/2022 Time: 11:08 Bed 9 Private MD: ED Physician Jose Gordon HPI: 08/06 11:45 This 37 yrs old Female presents to ER via Ambulatory with complaints of Sore jh7 Throat, Cough, Sneezing, Ear Pain. 11:45 The patient presents with sore throat. Onset: The symptoms/episode began/occurred 3 jh7 day(s) ago. Associated signs and symptoms: Pertinent positives: flu-like symptoms, myalgias, Sore throat Sneezing, runny nose. Patient presents with sore throat, sneezing, runny nose, and body aches for 3 days. The patient states that she got her first COVID-vaccine a week ago.. [employer]: 11:16 LMP 08/06/2022 kl Historical: - Allergies: 11:16 VIcodin; kl - Home Meds: 11:16 None [Active]; kl - PMHx: 11:16 None; kl - PSHx: 11:16 None; kl - Immunization history:: Adult Immunizations up to date, Client reports receiving the 1st dose of the Covid vaccine, August 02, 2022. - Social history:: Smoking status: Patient denies any tobacco usage or history of. ROS: 11:45 Eyes: Negative for injury, pain, redness, and discharge, Cardiovascular: Negative for jh7 chest pain, palpitations, and edema, Respiratory: Negative for shortness of breath, cough, wheezing, and pleuritic chest pain, Abdomen/GI: Negative for abdominal pain, nausea, vomiting, diarrhea, and constipation, Back: Negative for injury and pain, MS/Extremity: Negative for injury and deformity, Skin: Negative for injury, rash, and discoloration, Neuro: Negative for headache, weakness, numbness, tingling, and seizure. 11:45 Constitutional: Positive for body aches, fatigue, Negative for fever. 11:45 ENT: Positive for nasal discharge, sore throat, Negative for ear pain. 11:45 All other systems are negative. Exam: 11:45 Constitutional: This is a well developed, well nourished patient who is awake, alert, 7 and in no acute distress. Head/Face: Normocephalic, atraumatic. Cardiovascular: Regular rate and rhythm with a normal S1 and S2. No gallops, murmurs, or rubs. Normal PMI, no JVD. No pulse deficits. Respiratory: Lungs have equal breath sounds bilaterally, clear to auscultation and percussion. No rales, rhonchi or wheezes noted. No increased work of breathing, no retractions or nasal flaring. Abdomen/GI: Soft, non-tender, with normal bowel sounds. No distension or tympany. No guarding or rebound. No evidence of tenderness throughout. Back: No spinal tenderness. No costovertebral tenderness. Full range of motion. Skin: Warm, dry with normal turgor. Normal color with no rashes, no lesions, and no evidence of cellulitis. MS/ Extremity: Pulses equal, no cyanosis. Neurovascular intact. Full, normal range of motion. Neuro: Awake and alert, GCS 15, oriented to person, place, time, and situation. Normal gait. 11:45 ENT: Nose: nasal drainage, that is white, Posterior pharynx: Postnasal drainage. Vital Signs: 11:15 BP 111 / 82; Pulse 80; Resp 16; Temp 97.4(TE); Pulse Ox 100% on R/A; Weight 72.57 kg kl (R); Height 5 ft. 1 in. (154.94 cm); Pain 8/10; 11:15 Body Mass Index 30.23 (72.57 kg, 154.94 cm) MDM: 11:10 Patient medically screened. [facility] 13:20 Differential diagnosis: upper respiratory infection, viral syndrome. Data reviewed: [facility] vital signs, nurses notes, lab test result(s). Data interpreted: Pulse oximetry: is 100 %. Interpretation: normal. Counseling: I had a detailed discussion with the patient and/or guardian regarding: the historical points, exam findings, and any diagnostic results supporting the discharge/admit diagnosis, to return to the emergency department if symptoms worsen or persist or if there are any questions or concerns that arise at home. 08/06 11:19 Order name: Flu; Complete Time: 12:20 [facility] 08/06 11:19 Order name: COVID-19 SARS RT PCR (Document "Date of Onset" if Symptomatic); Complete [facility] Time: 13:18 Administered Medications: No medications were administered Disposition: 15:43 Co-signature as Attending Physician, Jose Gordon MD I agree with the assessment and kdr plan of care. Disposition Summary: 08/06/22 13:19 Discharge Ordered Location: Home [facility] Problem: new [facility] Symptoms: are unchanged [facility] Condition: Stable [facility] Diagnosis - Acute upper respiratory infection, unspecified [facility] Followup: [facility] - With: Private Physician - When: 2 - 3 days - Reason: Recheck today's complaints Discharge Instructions: - Discharge Summary Sheet [facility] - Upper Respiratory Infection, Adult [facility] - Viral Respiratory Infection [facility] Forms: - Medication Reconciliation Form [facility] - Thank You Letter [facility] Prescriptions: - Bromfed DM 2-30-10 mg/5 mL Oral syrup - take 10 milliliter by ORAL route every 4 hours As needed; 240 milliliter; [facility] Refills: 0, Product Selection Permitted Signatures: Dispatcher [employer] Carol Burrell RN RN kl Rittger, Kevin, MD MD [facility] Katie Rico, TRACK LAYING EQUIPMENT OPERATOR TRACK LAYING EQUIPMENT OPERATOR [facility] Arnoldo Huff9 Corrections: (The following items were deleted from the chart) 11:17 11:16 Allergies: No Known Allergies; antonia knight
[2022-08-06 13:45] VITALS: BP 111/82; TEMP 97.4; O2SAT 100
== END 2022-08-06 13:35 | disposition home or self-care (01) ==
LOC: ER 11:06
DX: J06.9 Acute upper respiratory infection, unspecified (principal); Z20.822 Contact with and (suspected) exposure to COVID-19; Z88.5 Allergy status to narcotic agent
CPT/HCPCS: 87804; 99282; J2405; J7030; U0003